=== PATIENT | male | born 1930 | race Asian ===

== ENCOUNTER 2016-10-14 23:10 | Inpatient (IN) | payer MEDICARE ==
[2016-10-15 00:12] LABS: ALB/GLOB RATIO 1.5 (>1.0); ALBUMIN 4.1 gm/dL (3.5-5.7); CALCIUM 9.1 mg/dL (8.6-10.3); MAGNESIUM 2.1 mg/dL (1.9-2.7)
[2016-10-15 00:15] LABS: INR 1.13
[2016-10-15 00:18] LABS: ABSOLUTE NEUTROPHIL COUNT 3.3 K/mm3 (1.8-7.7); BASO % 0.8 % (0.2-1.0); EOS # 0.1 (0.0-0.5); HEMATOCRIT 39.3 % (32.0-52.0); HEMOGLOBIN 12.5 gm/l (14.0-18.0); IMM NEUT% 0.2 % (0-1); LYMPH # 1.3 (1.0-4.8); MEAN CORPUSCULAR HEMOGLOBIN 29.9 pg (27.0-31.0); MEAN CORPUSCULAR HGB CONC 31.8 g/dl (33.0-37.0); MEAN PLATELET VOLUME 10.2 fl (7.4-10.4); MONO # 0.3 (0.0-0.8); MONO % 6.3 % (4-12); NEUT % 64.7 % (43-75); PLATELET COUNT 155 K/mm3 (130-400); RED CELL DISTRIBUTION WIDTH 12.3 % (11.5-14.5)
[2016-10-15] MEDS ORDERED: DILTIAZEM HCL 5 MG/ML 5ML VIAL IV ONE (00:45)
[2016-10-15] MEDS ORDERED: DILTIAZEM HCL/NORMAL SALINE 100 ML IV ONE (00:45)
[2016-10-15] MEDS ORDERED: FUROSEMIDE 40 MG/4 ML VIAL ONE (00:45)
[2016-10-15 00:59] LABS: SPECIFIC GRAVITY 1.015 (1.001-1.030); URINE BILIRUBIN NEGATIVE (NEGATIVE); URINE GLUCOSE (UA) NEGATIVE (NEGATIVE); URINE LEUKOCYTE ESTERASE NEGATIVE (NEGATIVE); URINE NITRITE NEGATIVE (NEGATIVE); URINE PROTEIN NEGATIVE (NEGATIVE); URINE UROBILINOGEN NORMAL (0-1 mg/dl)
[2016-10-15 01:00] LABS: URINE APPEARANCE CLEAR; URINE BLOOD NEGATIVE (NEGATIVE); URINE COLOR YELLOW
[2016-10-15] MEDS ORDERED: ACETAMINOPHEN 325 MG TABLET PO PRN (02:05)
[2016-10-15] MEDS ORDERED: BISACODYL 10 MG SUP PR PRN (02:05)
[2016-10-15] MEDS ORDERED: BLISTEX LIPSTICK 1 EACH TP PRN (02:05)
[2016-10-15] MEDS ORDERED: SODIUM CHLORIDE 0.9% 100 ML IV PRN (02:05)
[2016-10-15] MEDS ORDERED: MENTHOL/CETYLPYRD 1 EACH LOZENGE PO PRN (02:05)
[2016-10-15] MEDS ORDERED: DILTIAZEM HCL/NORMAL SALINE 100 ML IV PRN (02:05)
[2016-10-15] MEDS ORDERED: MAGNESIUM HYDROXIDE 30 ML UDCUP PO PRN (02:05)
[2016-10-15] MEDS ORDERED: BISACODYL 5 MG TABLET.EC PO PRN (02:05)
[2016-10-15 03:28] VITALS: BMI 27.2
[2016-10-15] MEDS ORDERED: PNEUMOCOCCAL 23-VAL P-SAC VAC 0.5 ML VIAL IM V ONE (03:30)
[2016-10-15] MEDS: ENOXAPARIN SODIUM 40 MG/0.4 ML SYRINGE SUB-Q SCH ×2 (03:41→21:11)
[2016-10-15] MEDS: POTASSIUM CHLORIDE 10 MEQ TAB.SR PO SCH ×2 (08:11→21:11)
[2016-10-15] MEDS: DILTIAZEM HCL CD 120 MG CAPSULE PO SCH (08:12)
--- NOTE | 2016-10-15 08:18 | RAD ---
CHEST 2 VIEWS HISTORY: Possible seizure activity. Frontal and lateral chest radiographs dated 10/15/2016. COMPARISON: 07/27/2008. FINDINGS: FOCAL AIRSPACE OPACITY: Hyperinflation. PLEURAL EFFUSION: Minor posterior pleural effusion formation on lateral view. CARDIOMEDIASTINAL SILHOUETTE: Tortuous calcified aorta. Minor vascular congestion. Borderline cardiomegaly. PNEUMOTHORAX: None identified. OSSEOUS STRUCTURES: Thoracic kyphosis and osseous bridging, seen previously. IMPRESSION: Mild cardiomegaly and vascular congestion. No gross airspace consolidation or pulmonary edema. Small posterior fluid pleural effusion on lateral view. Hyperinflation suggests obstructive pulmonary disease.
--- NOTE | 2016-10-15 08:22 | CT ---
HEAD CT WITHOUT CONTRAST HISTORY: Possible seizure activity. No intravenous contrast administered. Contiguous axial images acquired from skull base to vertex. COMPARISON:None. BRAIN VOLUME: Diffuse volume loss. VENTRICULAR SIZE: Ventriculomegaly compatible with mild hydrocephalus and central volume loss. FOCAL MASS EFFECT:None. ACUTE INTRACRANIAL HEMORRHAGE:None. WHITE MATTER: Moderate to severe white matter hypoattenuation compatible with microvascular disease. INTRACRANIAL VASCULATURE: Atherosclerotic calcifications of cavernous carotid arteries. CALVARIUM:Grossly intact. VISIBLE PARANASAL SINUSES AND MASTOID AIR CELLS:Grossly clear. Osteitic change of the right maxillary sinus. 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 No mass effect or acute intracranial hemorrhage. Mild features of hydrocephalus. Preliminary report relayed to the Emergency Medicine medical service by Dr. Chinchilla on 10/15/2016 at 0044 hours.
--- NOTE | 2016-10-15 08:28 | CT ---
CERVICAL SPINE CT WITHOUT CONTRAST HISTORY: Seizure activity. No intravenous contrast administered contiguous axial images acquired from the posterior fossa to the lower T3 level. FINDINGS ALIGNMENT: Exaggerated lordosis which may relate to thoracic kyphosis. Minor retrolisthesis at C3-4. COMPRESSION DEFORMITY: Endplate herniations involving the C6-T1 vertebrae. DISC SPACES: Moderate narrowing at C5-6. FRACTURE: No displaced fracture. DEGENERATIVE CHANGE: At C2-3 there is a small left paracentral protrusion. At C3-4 there is a moderate broad-based central protrusion with cord indentation. At C4-5 there is disc osteophyte ridge formation. At C5-6 there is minor disc osteophyte ridge formation. At C6-7 there is minor disc osteophyte ridge formation. There is asymmetric right facet degeneration at the C4-5 level. FORAMINAL NARROWING: Moderate narrowing at the right C4-5 level. PARASPINAL SOFT TISSUES: Extensive atherosclerotic calcification in the expected region of the right proximal internal carotid artery. LUNG APICES: Right apical fibrotic change. IMPRESSION: No cervical spine fracture identified. Bilateral features of cervical spondylosis. Findings suspicious for right internal carotid artery stenosis, consider sonographic correlation. Preliminary report relayed to the Emergency Medicine medical service by Dr. Chinchilla on 10/15/2016 at 0044 hours.
[2016-10-15] MEDS: DOCUSATE SODIUM 100 MG CAPSULE PO SCH ×2 (09:11→21:11)
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
[2016-10-15] MEDS: ALLOPURINOL 300 MG TABLET PO SCH (11:31)
[2016-10-15] MEDS: ASPIRIN (ENTERIC COATED) 81 MG TABLET.EC PO SCH (12:27)
[2016-10-15] MEDS ORDERED: TERAZOSIN HCL 5 MG CAPSULE PO SCH (21:00)
[2016-10-16 07:52] LABS: CALCIUM 9.3 mg/dL (8.6-10.3)
[2016-10-16] MEDS: ASPIRIN (ENTERIC COATED) 81 MG TABLET.EC PO SCH (09:12)
[2016-10-16] MEDS: DOCUSATE SODIUM 100 MG CAPSULE PO SCH (09:12)
[2016-10-16] MEDS: DILTIAZEM HCL CD 120 MG CAPSULE PO SCH (09:12)
[2016-10-16] MEDS: ALLOPURINOL 300 MG TABLET PO SCH (09:13)
[2016-10-16] MEDS: POTASSIUM CHLORIDE 10 MEQ TAB.SR PO SCH (09:13)
[2016-10-16 11:18] VITALS: BP 113/67
[2016-10-16] MEDS ORDERED: FUROSEMIDE 20 MG TABLET PO SCH (12:30)
--- NOTE | 2016-10-17 20:25 | DS ---
JUSTA MENDOZA [id number] DATE OF ADMISSION: 10/15/2016 DATE OF DISCHARGE: 10/16/2016 DISCHARGE DIAGNOSIS: Tachycardia associated with atrial fibrillation. OTHER DIAGNOSES: Include: 1. Generalized weakness. 2. Acute diastolic congestive heart failure. 3. Chronic essential hypertension. 4. Benign prostatic hypertrophy. 5. Senile dementia with noncompliance with is home medications. SUMMARY OF ADMISSION AND HOSPITAL COURSE: The patient is an 86-year-old male brought to the [facility] Emergency Department after a fall at home. It was unclear whether he had a seizure before the fall. He had some episodic jerky movements of the right side of his body witnessed by his son, but not alterations in his level of consciousness, and the symptoms were not persistent. On evaluation in the emergency department, he was noted to be tachycardic with a heart rate in the 140s, and edematous in his lower extremities with 2+ edema. He also had mild cardiomegaly, and pulmonary vascular congestion on his chest x-ray. He had a CT of the brain showing atrophy and microvascular changes, but no acute process. He was admitted to the Hospitalist service, and started initially on a Cardizem drip. He was weaned off the drip within 12 hours and transitioned over to oral Cardizem. He was switched to a 24 hour Cardizem dosing rather than twice a day dosing while he was here. He was taken off of lisinopril while he was here. He received diuretic therapy while he was here, and was felt to be medically stable for discharge on 10/16/2016. PHYSICAL EXAM: VITAL SIGNS: At discharge his vitals showed a temperature of 97.3, pulse 88, blood pressure 113/67, respirations 16, oxygen saturation is 100% on room air. Body mass index is 27.3. Weight is 76.8 kg. GENERAL: This is a well-developed, well-nourished elderly male in no acute distress. HEENT: Unremarkable. NECK: Shows no jugular venous distention. LUNGS: Sounds are slightly diminished at the bases, otherwise clear. CARDIOVASCULAR: Exam reveals irregular rhythm, normal rate, no murmur. EXTREMITIES: Show 2+ edema up to the ankles. LABORATORY STUDIES: His laboratory studies showed metabolic panel with a creatinine of 1.1, and potassium of 4.3 on the day of discharge. DISPOSITION: Home. ALLERGIES: INCLUDE PENICILLIN AND PREDNISONE. DISCHARGE INSTRUCTIONS: The plan is for the patient to fly back to [place] to be with son for the next 7 to 10 days and eventually arrangements should be made for the patient to have a caregiver, or possibly be in assisted living. He will have those arrangements made by his son, and he has a follow up appointment scheduled which is primary care provider, Dr. Porter on 10/27/2016 at 3:30 p.m. DISCHARGE MEDICATIONS: His discharge medications will include: 1. Hytrin 5 mg by mouth at bedtime. 2. Potassium chloride 10 mEq once or twice daily depending on whether he is taking his Lasix once or twice daily. 3. He is going to resume Lasix 40 mg twice daily. He can reduce the dose to once daily if his edema resolves. 4. He will be prescribed Cardizem CD 120 mg daily for rate control. 5. Enteric-coated aspirin 81 mg daily. 6. Allopurinol 300 mg daily. I did consider anticoagulation therapy with Coumadin given his advanced age, dementia, and compliance concerns. As well as a past history of gastrointestinal bleeding, he is not going to start full dose anticoagulation for his atrial fibrillation. IMMUNIZATIONS: He did get a pneumococcal vaccination on 10/15/2016. RADHA/lucian Cc: Lisandro Porter MD
== END 2016-10-16 13:30 | disposition home or self-care (01) | DRG 308 ==
LOC: ED 23:10 → ICU 10-15 01:25 → EEVIPCON 10-15 01:25 → MS 10-15 12:35
PROVIDERS: ADMIT Family Medicine; ATTEND Family Medicine
DX: I48.91 Unspecified atrial fibrillation (principal); I50.31 Acute diastolic (congestive) heart failure; R00.0 Tachycardia, unspecified; N40.0 Benign prostatic hyperplasia without lower urinary tract symptoms; F03.90 Unspecified dementia, unspecified severity, without behavioral disturbance, psychotic disturbance, mood disturbance, and anxiety; Z91.14 Patient's other noncompliance with medication regimen; I67.2 Cerebral atherosclerosis; M47.812 Spondylosis without myelopathy or radiculopathy, cervical region